=== PATIENT | female | born 1935 | race Caucasian/White ===

== ENCOUNTER 2018-04-29 17:43 | Emergency (ER) | payer MEDICARE, OTHER ==
--- NOTE | 2018-04-29 19:46 | UC ---
Hip/Pelvis Pain - HPI Summary HPI Summary: hx. of low back pain and hip pain, limits her ability to walk , she feels as if she will fall, in addition she has some numbness in her left leg which limits her ability to sense where she is in space and is quite distressing to her , she has known hx. of lumbar stenosis - History Of Current Complaint Chief Complaint: UCLowerExtremity Stated Complaint: HIP/BACK PAIN Time Seen by Provider: 04/29/18 18:48 Hx Obtained From: Patient Hx Last Menstrual Period: N/A ?: No Onset/Duration: Still Present Timing: Constant Severity Initially: Moderate Severity Currently: Moderate Pain Intensity: 5 Location: Discrete At: - left leg, lower back Aggravating Factor(s): Weight Bearing Alleviating Factor(s): Rest Associated Signs And Symptoms: Positive: Negative - Allergies/Home Medications Allergies/Adverse Reactions: Allergies Allergy/AdvReac Type Severity Reaction Status Date / Time No Known Allergies Allergy Verified 04/29/18 18:41 Home Medications: Home Medications Aspirin EC TAB* [Ecotrin EC Low Dose 81 MG*] 81 mg PO DAILY 04/29/18 [History Confirmed 04/29/18] Atorvastatin* [Lipitor*] 40 mg PO 1700 04/29/18 [History Confirmed 04/29/18] Bifidobacterium Infantis [Align] 4 mg PO DAILY 04/29/18 [History Confirmed 04/29] Carvedilol TAB* [Coreg TAB*] 12.5 mg PO BID 04/29/18 [History Confirmed 04/29/18 ] Cholecalciferol TAB* [Vitamin D TAB*] 1,000 unit PO DAILY 04/29/18 [History Confirmed 04/29/18] Clopidogrel TAB* [Plavix TAB*] 75 mg PO DAILY 04/29/18 [History Confirmed ] Glimepiride (NF) 2 mg PO BID 04/29/18 [History Confirmed 04/29/18] Levothyroxine TAB* [Synthroid TAB*] 75 mcg PO DAILY 04/29/18 [History Confirmed 04/29/18] [place]-3 Fatty Acids (Nf) [Fish Oil (NF)] 2 tab PO DAILY 04/29/18 [History Confirmed 04/29/18] Omeprazole CAP* [Prilosec CAP* 20 MG] 20 mg PO BID 04/29/18 [History Confirmed 04/29/18] Polyethylene Glycol 3350* [Miralax*] 0.5 packet PO DAILY 04/29/18 [History Confirmed 04/29/18] Psyllium Husk/Aspartame [Metamucil Powder] 1 teasp PO DAILY 04/29/18 [History Confirmed 04/29/18] Senior Vitamin 1 tab DAILY 04/29/18 [History Confirmed 04/29/18] Sitaglip/Metform XR 50/500(NR) [Janumet XR 50/500 (NF)] 1 tab PO BID 04/29/18 [ History Confirmed 04/29/18] Slo-Mag 2 tab DAILY 04/29/18 [History Confirmed 04/29/18] Valsartan/HCTZ 320/25(NF) [Diovan Hct 320/25(NF)] 1 tab PO DAILY 04/29/18 [ History Confirmed 04/29/18] PMH/Surg Hx/FS Hx/Imm Hx Endocrine History: Diabetes Cardiovascular History: Cardiac Disease - Surgical History Surgical History: Yes Surgery Procedure, Year, and Place: angioplasties/multiple stents. partial thyroidectomy. gallbladder - Social History Alcohol Use: None Substance Use Type: None Smoking Status (MU): Former Smoker When Did the Patient Quit Smoking/Using Tobacco: 35 years ago + Review of Systems Constitutional: Negative Skin: Negative Eyes: Negative ENT: Negative Respiratory: Negative Cardiovascular: Chest Pain Motor: Weakness - left leg feels weak Neurological: Paresthesia, Numbness - left lower leg Is Patient Immunocompromised?: No All Other Systems Reviewed And Are Negative: Yes Physical Exam Triage Information Reviewed: Yes Appearance: Ill-Appearing, Pain Distress Vital Signs: Initial Vital Signs Temp 36.8 C 04/29/18 18:33 Pulse 72 04/29/18 18:33 Resp 16 04/29/18 18:33 BP 156/55 04/29/18 18:33 Pulse Ox 99 04/29/18 18:33 Vital Signs Reviewed: Yes Eye Exam: Normal Eyes: Positive: Conjunctiva Clear ENT Exam: Normal ENT: Positive: Normal ENT inspection Neck exam: Normal Neck: Positive: Supple Respiratory Exam: Normal Respiratory: Positive: Chest non-tender Cardiovascular Exam: Normal Musculoskeletal: Positive: Other: - pain, in the hip on internal and external rotation of the left hip Neurological: Positive: Other: - paresthesia in the lower leg medially, some component of stocking glove distribution, normal heel and toe walking strength appears symmetrical in the lower extremities Skin Exam: Normal Hip Injury Course/Dx - Differential Dx/Diagnosis Provider Diagnoses: osteoarthritis of the left hip\. lumbar stenosis with radiculopathy. diabetes mellitus with neuropathy Discharge - Sign-Out/Discharge Documenting (check all that apply): Patient Departure All imaging exams completed and their final reports reviewed: Yes - Discharge Plan Condition: Fair Disposition: HOME Patient Education Materials: Lumbar Spinal Stenosis (ED), Osteoarthritis (ED), Diabetic Peripheral Neuropathy (ED) Referrals: No Primary Care Phys,NOPCP [Primary Care Provider] - - Billing Disposition and Condition Condition: FAIR Disposition: Home
--- NOTE | 2018-04-30 07:47 | RAD ---
HISTORY: pain , numbness, hx. of spinal stenosis COMPARISONS: None VIEWS: 3 , Frontal view of the pelvis with frontal and frog-leg views of the left hip FINDINGS: BONE DENSITY: Normal. BONES: There is no displaced fracture. JOINTS: There is moderate osteoarthritis of the hips and SI joints. ALIGNMENT: There is no dislocation. SOFT TISSUES: Unremarkable. OTHER FINDINGS: Degenerative changes are noted of the spine. IMPRESSION: OSTEOARTHRITIS. NO ACUTE OSSEOUS INJURY. IF SYMPTOMS PERSIST, RECOMMEND REPEAT IMAGING. R2
--- NOTE | 2018-04-30 07:48 | RAD ---
HISTORY: pain COMPARISONS: None VIEWS: 3 , Frontal, lateral, and coned-down lateral sacral views of the lumbar spine FINDINGS: ALIGNMENT: There is grade 1 anterolisthesis of L4-L5. VERTEBRAL BODIES: There is diffuse osteopenia. There is multilevel bridging anterolateral marginal osteophyte formation. The vertebral body heights are preserved. JOINTS: There is diffuse facet osteoarthritis most pronounced along the lower lumbar spine. INTERVERTEBRAL DISCS: There is diffuse loss of intervertebral disc height. SOFT TISSUE: Unremarkable. OTHER: The pelvis is unremarkable. The lung bases are clear. IMPRESSION: DEGENERATIVE DISC DISEASE AND OSTEOARTHRITIS R0
== END 2018-04-29 19:57 | disposition home or self-care (01) ==
LOC: UCCORT 17:43
DX: M16.12 Unilateral primary osteoarthritis, left hip (principal); M48.061 Spinal stenosis, lumbar region without neurogenic claudication; M54.16 Radiculopathy, lumbar region; E11.40 Type 2 diabetes mellitus with diabetic neuropathy, unspecified; Z79.84 Long term (current) use of oral hypoglycemic drugs; I51.9 Heart disease, unspecified; Z87.891 Personal history of nicotine dependence
CPT/HCPCS: 72100; 99202; G0463